=== PATIENT | male | born 1975 | race Caucasian/White ===

== ENCOUNTER → 2021-12-02 | Outpatient (CLI) | payer MEDICAID ==
--- NOTE | 2021-12-02 18:56 | CONS ---
CONSULTATION DATE OF SERVICE: 12/02/2021. 46-year-old gentleman has been evaluated in [facility] for possible obstructive sleep apnea-hypopnea syndrome. HISTORY OF PRESENT ILLNESS SLEEP-WAKE EVALUATION: SLEEP SCHEDULE: Patient's usual sleep schedule from 10 p.m. until 4:30/5 am on weekdays and from 11 p.m. to 7 a.m. on weekends. FALLING ASLEEP: No problems with falling asleep, although he used to read in bedroom. DURING SLEEP: He usually sleeps on the side position. According to his , he snores. He wakes up from sleep 2 times usually without episodes of nocturia for the last 5 years. He increased his weight about 30 pounds. No history of hypnagogic hallucinations, sleep paralysis or cataplexy. DURING THE DAY/SLEEP WAKE EVALUATION: During the day, patient falling asleep, has problems with memory and concentration. [place] Sleepiness Scale is increased to 10. PAST MEDICAL HISTORY: Positive for peripheral neuropathy, anxiety, depression, kidney stones, acid reflux. PAST SURGICAL HISTORY: Surgery for kidney stones. MEDICATIONS: Pristiq 100 mg once a day. Lyrica 150 mg 3 times a day. Vitamin B12. Vitamin D. SOCIAL HISTORY: Quit smoking 3 years ago practically does not use any alcohol in the present time. 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 REVIEW OF SYSTEMS: Snoring, tiredness and sleepiness during the day. FAMILY HISTORY: Hypertension, heart problems, cancer, diabetes, thyroid problem, restless legs. PHYSICAL EXAMINATION: GENERAL: gentleman without distress. BP 125/80, HR 85, RR 14, height 5 feet 9 inches, weight 187.4 pounds. Body mass index 27.6, temperature 97.3, oxygen saturation at room air 97%. Oropharynx: Low position of soft palate, Mallampati 3, wide pillars. Neck is wide 17 inches in circumference. NECK: Supple, no JVD. Thyroid is not palpable. LUNGS: Clear to percussion and to auscultation. Good air exchange. No wheezing or rhonchi. HEART: S1, S2 regular. No murmurs, gallops, or rubs. ABDOMEN: Soft and nontender. Bowel sounds are present. No organomegaly appreciated. EXTREMITIES: No clubbing or cyanosis. SENIOR CAREGIVER: Awake, alert, and oriented X3. Cranial nerves 2 to 7 intact. There is no fasciculation or atrophy. noted. No focal deficits observed. IMPRESSION: 1. Snoring, small oropharyngeal air space, wide neck, 17 inches in circumference, sleepiness. [place] Sleepiness Scale is 10. Possible obstructive sleep apnea- hypopnea syndrome. 2. History of peripheral neuropathy. 3. Anxiety. 4. Depression. 5. History of kidney stones treated surgically. 6. Acid reflux. 7. 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 PLAN: 1. Polysomnography for evaluation of patient's breathing during sleep. 2. CPAP/BiPAP titration if sleep study confirms obstructive sleep apnea-hypopnea syndrome. 3. Preferable position during sleep on the side. 4. No driving if patient feels any sleepiness. 5. I will see patient for follow up visit to explain results of testing and following plan. Thank you very much for referring this patient for consultation. Sincerely, Christian Culp MD, PhD, FAASM Diplomat of [employer] Sleep Medicine Board of [employer] [facility] [place] MMODL / IJN: [id number] /
== END ==
LOC: SLEEP 15:54
PROVIDERS: ATTEND Internal Medicine
DX: R06.83 Snoring (principal); F41.9 Anxiety disorder, unspecified; F32.A Depression, unspecified; K21.9 Gastro-esophageal reflux disease without esophagitis; F10.20 Alcohol dependence, uncomplicated; Z87.442 Personal history of urinary calculi; Z86.69 Personal history of other diseases of the nervous system and sense organs; Z87.891 Personal history of nicotine dependence; Z79.899 Other long term (current) drug therapy
CPT/HCPCS: 99202

== ENCOUNTER → 2022-05-20 | Outpatient (CLI) | payer MEDICAID ==
--- NOTE | 2022-05-20 11:05 | P.PN ---
Subjective DATE: 05/20/2022 FOLLOW UP VISIT. Patient with obstructive sleep apnea hypopnea syndrome return to sleep center for follow-up visit. Recently patient had sleep study which documented obstructive sleep apnea hypopnea syndrome. Patient was initiated on PAP therapy and today is first visit after treatment was started. Patient was able to use PAP equipment every night for the whole night. The patient does not have significant problems with the mask, PAP pressure and humidification. [place] sleepiness scale is 5, which significantly improved from 10 during the first visit. I checked information from PAP unit. PAP unit pressure 5-12 cm H2O. Usage is 97 % of time and 73% for more than 4 hours, average 5.2 hours per night. Leak is 22.2 l/m, which is in acceptable range. Apnea Hypopnea Index is 1.0, which is normal. MEDICATIONS:1. Pristiq 100 mg once a day 2. Lyrica 150 mg 3 times a day 3. Vitamin B12 4. Vitamin D During physical exam: GENERAL: A pleasant patient without any distress. VITAL SIGNS: BP 112/71, HR 76, RR 16, weight 184.8, temperature 97.2, oxygen saturation at room air 98%. HEENT: PERRLA, EOMI.low position of soft palate, Mallapati 3. NECK: Supple. No JVD. LUNGS: Clear to percussion and to auscultation. Good air exchange. No wheezing or rhonchi. HEART: S1, S2 regular. ABDOMEN: Soft and nontender.[] EXTREMITIES: No clubbing or cyanosis. PROFESSOR OF HISTORY: Awake, alert, and oriented x3. No focal deficit. Impressions: 1. Obstructive sleep apnea-hypopnea syndrome. Patient demonstrated great compliance with treatment, benefiting from treatment. 2. Significant periodic limb movements have been documented during the sleep study but without significant amount of micro-arousals. Patient clinically does not have any symptoms of periodic limb movements at the present time. 3. Anxiety. 4. History of depression. 5. History of kidney stones treated surgically. 6. Acid reflux. 7. Recovery from EtOH since April 2020.. Plan: 1. Continue using PAP equipment every night for the whole night. 2. To change air filter at least 1-2 times per month. 3. PAP unit should stay lower then position of the head. 4. Advised patient to remove all remaining water from humidifier canister daily and make it dry after each usage. Refill canister with fresh distilled water before each usage. 5. Sleep hygiene with regular time in bed for at least 8 hours. 6. Precautions related to driving. No driving if feel any sleepiness. 7. I will maintain prescription for PAP supplies including mask, tube, filters. 8. Follow up visit in 6 months or earlier if patient has any problems. 9. Watching weight. 10. No necessity for pharmacotherapy for periodic limb movements at the present time. Thank you very much for allowing me to participate in the management of your patient. Christian Culp MD, PhD, FAASM. Diplomat of [place] [employer], Sleep Medicine Board by [employer] Phone Banker of [facility] [place]
== END ==
LOC: SLEEP 10:02
PROVIDERS: ATTEND Internal Medicine
DX: G47.33 Obstructive sleep apnea (adult) (pediatric) (principal); G47.61 Periodic limb movement disorder; F32.A Depression, unspecified; F41.9 Anxiety disorder, unspecified; K21.9 Gastro-esophageal reflux disease without esophagitis; Z87.442 Personal history of urinary calculi; Z98.890 Other specified postprocedural states; Z99.89 Dependence on other enabling machines and devices; Z79.899 Other long term (current) drug therapy

== ENCOUNTER → 2022-12-30 | Outpatient (CLI) | payer MEDICAID ==
--- NOTE | 2022-12-30 15:43 | P.PN ---
Subjective DATE: 12/30/2022 FOLLOW UP VISIT. Patient with obstructive sleep apnea hypopnea syndrome return to sleep center for follow-up visit. Information from previous visit have been reviewed. Patient is using PAP equipment every night for the whole night, getting PAP supplies in time. The patient does not have significant problems with the mask, PAP unit and humidification. [place] sleepiness scale is 7, which is normal. I checked information from PAP unit. PAP unit pressure 5-12, average 9.9 cm H2O. Usage is 97% and the 70 % for more then 4 hours, average 5.15 hours per night. Leak is 16.9 l/m, which is in acceptable range. Apnea Hypopnea Index is 1.1, which is normal. MEDICATIONS:1. Lyrica 150 mg 3 times a day 2. Pristiq 100 mg once a day 3 During physical exam: GENERAL: A pleasant patient without any distress. VITAL SIGNS: BP 119/67, HR 80, RR 16 , weight 190, temperature 97.5, oxygen saturation at room air 97 % . HEENT: PERRLA, EOMI.low position of soft palate, Mallapati 3 . NECK: Supple. No JVD. LUNGS: Clear to percussion and to auscultation. Good air exchange. No wheezing or rhonchi. HEART: S1, S2 regular. ABDOMEN: Soft and nontender. Slightly obese EXTREMITIES: No clubbing or cyanosis. CABLE FERRY OPERATOR: Awake, alert, and oriented x3. No focal deficit. Impressions: 1. Obstructive sleep apnea-hypopnea syndrome. Patient demonstrated great compliance with treatment, benefiting from treatment. 2. History of depression. 3. History of anxiety. 4. Acid reflux. 5. History of nephrolithiasis treated surgically. 6. Recovery from EtOH since April 2020. Plan: 1. Continue using PAP equipment every night for the whole night. 2. To change air filter at least 1-2 times per month. 3. PAP unit should stay lower then position of the head. 4. Advised patient to remove all remaining water from humidifier canister daily and make it dry after each usage. Refill canister with fresh distilled water before each usage. 5. Sleep hygiene with regular time in bed for at least 8 hours. 6. Precautions related to driving. No driving if feel any sleepiness. 7. I will maintain prescription for PAP supplies including mask, tube, filters. 8. Watching weight. 9. Follow up visit in 6 months or earlier if patient has any problems. Thank you very much for allowing me to participate in the management of your patient. Christian Culp MD, PhD, FAASM. Diplomat of [place] [employer], Sleep Medicine Board by [place] [employer] Digital Associate of [facility] [place]
== END | disposition home or self-care (01) ==
LOC: SLEEP 15:10
PROVIDERS: ATTEND Internal Medicine
DX: G47.33 Obstructive sleep apnea (adult) (pediatric) (principal); Z99.89 Dependence on other enabling machines and devices; Z86.59 Personal history of other mental and behavioral disorders; K21.9 Gastro-esophageal reflux disease without esophagitis; Z87.442 Personal history of urinary calculi

== ENCOUNTER → 2023-08-18 | Outpatient (CLI) | payer MEDICAID ==
--- NOTE | 2023-08-18 13:44 | P.PN ---
Subjective DATE: 08/18/2023 FOLLOW UP VISIT. Patient with obstructive sleep apnea hypopnea syndrome return to sleep center for follow-up visit. Information from previous visit have been reviewed. Patient is using PAP equipment every night for the whole night, getting PAP supplies in time. The patient does not have significant problems with the mask, PAP unit and humidification. [place] sleepiness scale is 8, which is normal. I checked information from PAP unit. PAP unit pressure 5-12, average 10.4 cm H2O. Usage is 97% and 77 % for more then 4 hours, average 5.5 hours per night. Leak is to 18.4 l/m, which is in acceptable range. Apnea Hypopnea Index is 1.6, which is normal. MEDICATIONS:1. Gabapentin 300 mg 3 times a day 2. Pristiq 100 mg once a day During physical exam: GENERAL: A pleasant patient without any distress. VITAL SIGNS: BP 116/75, HR 82, RR 16, weight 183.2, temperature 97.8, oxygen saturation at room air 94 % . HEENT: PERRLA, EOMI.low position of soft palate, Mallapati 3 . NECK: Supple. No JVD. LUNGS: Clear to percussion and to auscultation. Good air exchange. No wheezing or rhonchi. HEART: S1, S2 regular. ABDOMEN: Soft and nontender.[] EXTREMITIES: No clubbing or cyanosis. BRIM BUSTER: Awake, alert, and oriented x3. No focal deficit. Impressions: 1. Obstructive sleep apnea-hypopnea syndrome. Patient demonstrated great compliance with treatment, benefiting from treatment. 2. History of depression. 3. History of anxiety think acid reflux. 4. Status post surgical treatment for kidney stones. 5. Status post EtOH recovery since April 2020. Plan: 1. Continue using PAP equipment every night for the whole night. 2. To change air filter at least 1-2 times per month. 3. PAP unit should stay lower then position of the head. 4. Advised patient to remove all remaining water from humidifier canister daily and make it dry after each usage. Refill canister with fresh distilled water before each usage. 5. Sleep hygiene with regular time in bed for at least 8 hours. 6. Precautions related to driving. No driving if feel any sleepiness. 7. I will maintain prescription for PAP supplies including mask, tube, filters. 8. Follow up visit in 6 months or earlier if patient has any problems. 9. Watching weight. Thank you very much for allowing me to participate in the management of your patient. Christian Culp MD, PhD, FAASM. Diplomat of [employer] [employer] Medicine, Sleep Medicine Board by [employer] Automatic Buffer [facility] [place]
== END ==
LOC: 3 N SLEEP 13:09
PROVIDERS: ATTEND Internal Medicine
DX: G47.33 Obstructive sleep apnea (adult) (pediatric) (principal); K21.9 Gastro-esophageal reflux disease without esophagitis; F41.9 Anxiety disorder, unspecified; F32.A Depression, unspecified; Z98.890 Other specified postprocedural states; Z87.442 Personal history of urinary calculi; Z99.89 Dependence on other enabling machines and devices
CPT/HCPCS: 99212

== ENCOUNTER → 2023-11-11 | Outpatient (CLI) | payer MEDICAID ==
--- NOTE | 2023-11-11 13:28 | CT ---
EXAMINATION TYPE: CT heart w calcium score DATE OF EXAM: 11/11/2023 COMPARISON: HISTORY: Screening for cardiovascular disorder. 213.9 CT DLP: 67.2 mGycm Automated exposure control for dose reduction was used. CT CALCIUM SCORING Coronary calcium is a marker for plaque (fatty deposits) in a blood vessel or atherosclerosis (harden ing of the arteries). The presence and amount of calcium detected in a coronary artery by the CT sca n, indicates the presence and amount of atherosclerotic plaque. These calcium deposits appear years before the development of heart disease symptoms such as chest pain and shortness of breath. A calcium score is computed for each of the coronary arteries based upon the volume and density of th e calcium deposits. This can be referred to as your calcified plaque burden. It does not correspond directly to the percentage of narrowing in the artery but does correlate with the severity of the un derlying coronary atherosclerosis. PROCEDURE TECHNIQUE - Prospective Gating was used. Slice thickness: 3mm. Density threshold (HU): 130, Pixel threshold: 3, Algorithm: discrete. RESULTS Region: LM Calcium Score ([place]): 0 Volume (mm3): 0 Mass (g): 0 Region: RCA Calcium Score ([place]): 0 Volume (mm3): 0 Mass (g): 0 Region: LAD Calcium Score ([place]): 38.46 Volume (mm3): 32.58 Mass (g): 10.86 Region: CX Calcium Score ([place]): 0 Volume (mm3): 0 Mass (g): 0 Region: PDA Calcium Score ([place]): 0 Volume (mm3): 0 Mass (g): 0 Total: Calcium Score ([place]ston): 38.46 Volume (mm3): 32.58 Mass (g): 10.86 TOTAL CALCIUM SCORE: 38.46 Small hiatal hernia. Trace of pericardial fluid. IMPRESSION: Calcium Score: 38.46 Implication: Definite, at least mild atherosclerotic plaque Risk of Coronary Artery Disease: Mildly minimal coronary artery narrowings likely. CALCIUM SCORE IMPLICATION RISK OF C ORONARY ARTERY DISEASE 0 No identifiable plaque Very low, generally less than 5% 1-10 Minimal identifiable plaque Very unlikely, less than 10% 11-100 Definite, at least mild atherosclerotic plaque Mild or m inimal coronary narrowings likely 101-400 Definite, at least moderate atherosclerotic plaque Mild coronary ar michael disease highly likely, significant narrowing possible 401 or Higher Extensive atherosclerotic plaque High lik elihood of at least one significant coronary narrowing
--- NOTE | 2023-11-11 14:01 | US ---
EXAMINATION TYPE: US arterial LE single level DATE OF EXAM: 11/11/2023 12:56 PM CLINICAL INDICATION: Male, 48 years old with history of Z82.49 FAMILY HX OF ISCHEM HEART DIS; screeni ng for cardiovascular disease, cold feet History of: Smoker: previous Hypertension: N Diabetic: N Hyperlipidemia: N TIA/CVA: N Previous Vascular Surgery: N CAD: N SC: N Vascular Ulcers: N Claudication: N Gangrene: N Doppler Waveforms: Right: Multiphasic Left: Multiphasic Right Brachial Pressure: 109 Left Brachial Pressure: 113 Ankle-Brachial Indices: Right: 1.2 Left: 1.1 Toe Brachial Indices: Right: 1.1 Left: 1.1 IMPRESSION: Normal bilateral ankle-brachial indices.
== END | disposition home or self-care (01) ==
LOC: RADUSWWP 12:09
PROVIDERS: ATTEND Family Medicine
DX: Z13.6 Encounter for screening for cardiovascular disorders (principal); Z82.49 Family history of ischemic heart disease and other diseases of the circulatory system
CPT/HCPCS: 75571; 93922

== ENCOUNTER → 2024-05-23 | Outpatient (CLI) | payer MEDICAID ==
[2024-05-23 16:03] VITALS: BP 117/72; PULSE 74; RESP 16; TEMP 98
--- NOTE | 2024-05-23 18:12 | P.PROGSL ---
Subjective DATE: 05/23/2024 FOLLOW UP VISIT. Patient with obstructive sleep apnea hypopnea syndrome return to sleep center for follow-up visit. Information from previous visit have been reviewed. Patient is using PAP equipment every night for the whole night, getting PAP supplies in time. The patient does not have significant problems with the mask, PAP unit and humidification. [place] sleepiness scale is 9, which is borderline. I checked information from PAP unit. PAP unit pressure 5-12, average 10.1 cm H2O. Usage is 93% and 77% for more then 4 hours, average 5.75 hours per night. Leak is increased to 32.4 l/m. Apnea Hypopnea Index is 1.9, which is normal. MEDICATIONS: Please see below During physical exam: GENERAL: A pleasant patient without any distress. VITAL SIGNS: Please see below, weight 170 pounds, BMI 25.1, patient lost 13 pounds since previous visit. HEENT: PERRLA, EOMI.low position of soft palate, Mallapati 3 . NECK: Supple. No JVD. LUNGS: Clear to percussion and to auscultation. Good air exchange. No wheezing or rhonchi. HEART: S1, S2 regular. ABDOMEN: Soft and nontender.[] EXTREMITIES: No clubbing or cyanosis. FIELD SALES ENGINEER: Awake, alert, and oriented x3. No focal deficit. Impressions: 1. Obstructive sleep apnea-hypopnea syndrome. Patient demonstrated great compliance with treatment, benefiting from treatment. 2. History of depression. 3. History of anxiety. 4. Acid reflux. 5. Status post surgical treatment for kidney stones. 6. Status post EtOH recovery since April 2020. Plan: 1. Continue using PAP equipment every night for the whole night. 2. To change air filter at least 1-2 times per month. 3. PAP unit should stay lower then position of the head. 4. Advised patient to remove all remaining water from humidifier canister daily and make it dry after each usage. Refill canister with fresh distilled water before each usage. 5. Sleep hygiene with regular time in bed for at least 8 hours. 6. Precautions related to driving. No driving if feel any sleepiness. 7. I will maintain prescription for PAP supplies including mask, tube, filters. 8. Follow up visit in 6 months or earlier if patient has any problems. 9. Watching weight. Thank you very much for allowing me to participate in the management of your patient. Christian Culp MD, PhD, FAASM. Diplomat of [employer] [employer], Sleep Medicine Board by [employer] Shoe Repair Cobbler [facility] [place] Objective - Vital Signs Vital Signs: Vital Signs Temp 98 F 05/23/24 16:02 Pulse 74 05/23/24 16:02 Resp 16 05/23/24 16:02 BP 117/72 05/23/24 16:02 Pulse Ox 98 05/23/24 16:02 FiO2 Intake & Output 05/22/24 05/23/24 05/23/24 18:59 06:59 18:59 Weight 77.111 kg Home Medications: Home Medications Medication Instructions Recorded Confirmed Type Desvenlafaxine Succinate [Pristiq] 100 mg PO DAILY 05/23/24 05/23/24 History Gabapentin [Gabapentin ER] 600 mg PO DAILY 05/23/24 05/23/24 History
== END ==
LOC: 3 N SLEEP 15:46
PROVIDERS: ATTEND Internal Medicine
DX: G47.33 Obstructive sleep apnea (adult) (pediatric) (principal); F41.9 Anxiety disorder, unspecified; F32.A Depression, unspecified; K21.9 Gastro-esophageal reflux disease without esophagitis; Z98.890 Other specified postprocedural states; Z99.89 Dependence on other enabling machines and devices; Z87.442 Personal history of urinary calculi
CPT/HCPCS: 99212